=== PATIENT | female | born 1985 | race Caucasian/White ===

== ENCOUNTER 2017-06-13 07:06 | Inpatient (IN) ==
[~2017-06-13 07:06] MED LIST: Acetaminophen 325 MG TABLET PO ONE; Famotidine 20 MG/2 ML VIAL IVP PRN; Metoclopramide 10 MG/2 ML VIAL IVP PRN; Naloxone 0.4 MG/ML INJ IVP PRN
[2017-06-13] MEDS ORDERED: *HR* Nalbuphine 20 MG/ML AMPUL IVP PRN (07:08)
[2017-06-13] MEDS ORDERED: Ringers Solution, Lactated 1,000 ML ONE (07:15)
[2017-06-13] MEDS ORDERED: Ringers Solution, Lactated 1,000 ML IVC SCH (07:15)
[2017-06-13] MEDS ORDERED: *HR* Nalbuphine 20 MG/ML AMPUL ONE (07:16)
[2017-06-13 07:26] LABS: Basophils % 0.1 %; Eosinophils % 0.2 %; Hematocrit 37.5 % (35.3-44.9); Hemoglobin 12.9 g/dL (11.5-15.4); Immature Granulocytes % 1.2 % (0-4); Lymphocytes # 1.8 K/mcL (0.6-4.6); Lymphocytes % 12.4 %; Mean Corpuscular HGB Conc 34.4 g/dL (31.6-35.5); Mean Corpuscular Hemoglobin 30.1 pg (28.0-33.3); Mean Corpuscular Volume 87.6 fL (83.0-100.0); Monocytes # 0.9 K/mcL (0.0-1.3); Monocytes % 6.2 %; Neutrophils # 11.7 K/mcL (1.6-8.9); Platelet Count 240 K/mcL (140-400); Red Blood Count 4.28 M/mcL (3.82-4.97); Red Cell Distribution Width 13.4 % (11.5-14.5); Segmented Neutrophils % 79.9 %
--- NOTE | 2017-06-13 07:32 | Anesthesia Evaluation PreOp ---
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 Any Significant HX Other Medical History: GERD Anesthesia History: No Prior Anesthetic Complications, Past Anesthesia (leep) : Yes Test: Positive Alcohol Use: none Drug use: none Medications and Allergies Caplet 1 tab PO DAILY 10/30/16 [History] Ranitidine HCl 1 tab PO PRN PRN 10/30/16 [History] Ferrous Sulfate 1 tab PO DAILY 06/13/17 [History] Allergies Sulfa (Sulfonamide Antibiotics) Allergy (Verified 06/13/17 02:25) Rash - Meds/Allergy Pre-op Review Medications Reviewed: Yes Allergies Reviewed: Yes Beta Blockers on Current Med List: No Anesthesia Exam 120/80 88 16 fht 123 Height: 5'1" Weight: 86 kg NPO (# of Hours): 2 Pain Scale: 7 Pain Scale Used: Numeric (1 - 10) - HEENT Pupil (Motor): Pupils equal Mallampati: II Teeth: Normal Oral Opening: Greater than 3 - 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
[2017-06-13] MEDS ORDERED: *HR* Ropivacaine/PF 0.2% 10 ML AMPUL EP ONE (07:33)
[2017-06-13] MEDS ORDERED: *HR* FentaNYL (PF) 100 MCG/2 ML VIAL EP ONE (07:33)
[2017-06-13] MEDS ORDERED: *HR* FentaNYL (PF) 100 MCG/2 ML VIAL ONE (07:36)
[2017-06-13] MEDS ORDERED: *HR* Ropivacaine/PF 0.2% 10 ML AMPUL ONE (07:36)
[2017-06-13] MEDS ORDERED: Epidural Premix (fent/bupiv) 110 ML EP ONE ×2 (07:37→14:48)
[2017-06-13] MEDS ORDERED: Epidural Premix (fent/bupiv) 110 ML EP SCH (07:45)
--- NOTE | 2017-06-13 08:05 | Anesthesia Procedures ---
Date of Encounter: 06/13/17 Time of Encounter: 08:03 Procedures: Anesthesia - Epidural/Spinal Patient ID/Chart reviewed: Yes Patient examined: Yes OB Eval: Gestational age: 42 OB Eval: : 2 OB Eval: Hx Para: 0 OB Eval: Dilated at (cm): 3 OB Eval: Contractions: Non-stressed pattern Consent Obtained: Yes Supplemental Oxygen: None/Room Air Site Prep: Aseptic Technique Patient position: upright Local Anesthetic: Lidocaine 1% Amount of Local Anesthetic used: 3 Touhy Needle Gauge: 18 Touhy Needle Depth (cm): 7 Catheter Depth at Skin (cm): 15 Test Dose (1.5% Lido + Epi): Volume given (mls): 3 Test Dose Result: Negative Loading Dose: Fentanyl (mcg): 100 Loading Dose: Other: ropivicaine 0.2% 10 cc Loading Dose Administered: Thru Touhy Needle Infusion Med: 0.125% Bupivacaine w/ 2 mcg/ml Fentanyl Infusion Rate (mls/hr): 15 (pcea 5 cc q 30") Catheter Secured in Place: Tegaderm Interspace Used: L2-L3 Loss of Resistance (URSULA): Yes Blood: No CSF: No Paresthesia: No Procedure: aseptic, tolerated well, effective Vitals + FHT's: 114/76 87 16 fht 123
--- NOTE | 2017-06-13 08:12 | OB Labor Progress Note ---
Date of Encounter: 06/13/17 Time of Encounter: 08:11 Labor Progress Note - Subjective Subjective: Pt is comfortable with epidural. - Cervix Cervix: 6/100/0 - Heart Tones Heart Tones: Category I - [place]: irregular - Interventions Interventions: AROM for small amount thick meconium stained fluid - Plan Plan: Continue to monitor. Anticipate .
--- NOTE | 2017-06-13 08:26 | OB/GYN History & Physical ---
Date of Encounter: 06/13/17 Time of Encounter: 08:22 Assessment and Plan (1) Post term over 40 weeks Current visit: Yes Status: Acute epidural has been given anticipate vaginal delivery (2) Low lying placenta nos or without hemorrhage, third trimester Current visit: Yes Status: Acute (3) Abnormal AFP3 test Current visit: Yes Status: Acute (4) S/P LEEP (loop electrosurgical excision procedure) Current visit: Yes Status: Acute History of Present Illness Chief complaint: contractions HPI: Ms. Caban is a 31 year old female at 40.5 weeks gestation here today with increased contractions and has made cervical change. Her has been uncomplicated. She reports mild vaginal bleeding after cervical check 2 days prior at her office visit and good movement. Denies loss of vaginal fluid, dizziness, blurred vision, headache. She is having a girl and plans to breast feed. Labs: GBS negative, Rubella immune, all other labs wnl Past Med Surg Social Fam HX - Past Medical History Medical history: non-contributory Psychiatric history: anxiety - Social History Smoking Status: Former smoker Smokeless Tobacco Status: No Alcohol use: none Drug use: none - Family History Mother History Unknown: Yes Obstetrical History - Pregnancies : 2 Para: 0 Term: 0 : 0 Ab's: 1 Livin Medications and Allergies Caplet 1 tab PO DAILY 10/30/16 [History] Ranitidine HCl 1 tab PO PRN PRN 10/30/16 [History] Ferrous Sulfate 1 tab PO DAILY 06/13/17 [History] Allergies Sulfa (Sulfonamide Antibiotics) Allergy (Verified 06/13/17 02:25) Rash Review of System OB - Constitutional Constitutional ROS IM: as per HPI Exam - Constitutional Constitutional: well developed, well nourished, no acute distress, average body habitus - HEENT HEENT: Normocephaly, Mucus Membranes Moist - Neck Neck exam: normal inspection - Lungs Respiratory exam: CTAB - Cardiovascular Cardiovascular exam: RRR, +S1, +S2 - Abdomen Abdomen: Present: bowel sounds normal, gravid, non tender - Cervix Dilation: 6 Effacement: 100 Station: 0 Results Result Diagrams: 06/13/17 07:00 Abnormal lab results WBC 14.6 K/mcL (4.3-11.1) H 06/13/17 07:00 Neutrophils # 11.7 K/mcL (1.6-8.9) H 06/13/17 07:00 All other labs normal. - VTE Reasons for not Prescribing Prophylaxis: Treatment not Indicated - Low risk for VTE
[2017-06-13] MEDS ORDERED: Ondansetron 4 MG/2 ML VIAL IM ONE ×2 (09:30→14:26)
--- NOTE | 2017-06-13 15:32 | OB Labor Progress Note ---
Date of Encounter: 06/13/17 Time of Encounter: 15:30 Labor Progress Note - Subjective Subjective: patient doing very well, comfortable with epidural - Vital Signs Vital Signs: VSS - Cervix Cervix: fully dilated - Heart Tones Heart Tones: 120/mod elma+ accels, no decels - Plan Plan: allow to labor down, anticipate
[2017-06-13] MEDS ORDERED: Oxytocin 20 units/ LR 1000 mL 20 UNIT/1,000 ML BAG IVC ONE ×3 (16:53→20:38)
--- NOTE | 2017-06-13 18:44 | OB/GYN Procedure Note ---
Delivery - Delivery Date: 06/13/17 Provider: Augusto Alston Intrapartum events: meconium Delivery induction: none Delivery augmentation: rupture of membranes Delivery monitor: external FHT Anesthesia: epidural Estimated Blood Loss: 650 - Repair Episiotomy: none Laceration Description: Perineal - 3rd Degree - Complications Delivery complications: hemorrhage, retained placenta - Disposition Mom disposition: stable in LDR disposition: stable in LDR - Comments Comments: Arsh is a 31 y/o now delivered a viable female infant with meconium via VAVD @ 1749hrs. Patient pushed to +3 station and heart rate dropped to the 90's. A VAVD was used to facilitate delivery. Infant was delivered [place], 3VC, cord clamped, cut and handed over to nurses, weight 3630g, APGARs 8/8, placenta delivered @ 1753hrs. EBL 650, Methergine .2 and Hemabate .25 given for PPH, manual extraction of retained placenta was performed. 3rd degree perineal laceration repaired in usual manner. Mother and infant stable.
[2017-06-13 18:47] LABS: Basophils % 0.1 %; Hematocrit 40.3 % (35.3-44.9); Hemoglobin 13.3 g/dL (11.5-15.4); Immature Granulocytes % 0.7 % (0-4); Lymphocytes # 1.4 K/mcL (0.6-4.6); Lymphocytes % 9.3 %; Mean Corpuscular Hemoglobin 29.5 pg (28.0-33.3); Mean Corpuscular Volume 89.4 fL (83.0-100.0); Monocytes # 1.3 K/mcL (0.0-1.3); Monocytes % 8.8 %; Neutrophils # 12.3 K/mcL (1.6-8.9); Platelet Count 226 K/mcL (140-400); Red Blood Count 4.51 M/mcL (3.82-4.97); Red Cell Distribution Width 13.2 % (11.5-14.5); Segmented Neutrophils % 81.1 %
[2017-06-13] MEDS ORDERED: Measles/Mumps/Rubella Vacc 0.5 ML VIAL SQ PRN (20:38)
[2017-06-13] MEDS ORDERED: Oxytocin 20 units/ LR 1000 mL 20 UNIT/1,000 ML BAG IVC SCH (20:45)
[2017-06-14] MEDS ORDERED: Acetaminophen 325 MG TABLET PO PRN (00:05)
[2017-06-14] MEDS: Ibuprofen 600 MG TABLET PO PRN ×3 (03:43→15:55)
[2017-06-14 05:54] LABS: Basophils % 0.2 %; Eosinophils % 0.1 %; Hematocrit 25.5 % (35.3-44.9); Immature Granulocytes % 0.9 % (0-4); Lymphocytes # 1.4 K/mcL (0.6-4.6); Lymphocytes % 8.2 %; Mean Corpuscular HGB Conc 33.7 g/dL (31.6-35.5); Mean Corpuscular Volume 88.9 fL (83.0-100.0); Mean Platelet Volume 10.7 fL (9.4-12.4); Monocytes # 1.5 K/mcL (0.0-1.3); Monocytes % 8.5 %; Neutrophils # 14.2 K/mcL (1.6-8.9); Platelet Count 189 K/mcL (140-400); Red Blood Count 2.87 M/mcL (3.82-4.97); Red Cell Distribution Width 13.3 % (11.5-14.5); Segmented Neutrophils % 82.1 %
[2017-06-14 05:58] LABS: Hemoglobin 8.6 g/dL (11.5-15.4)
--- NOTE | 2017-06-14 08:17 | OB/GYN Progress Note ---
Date of Encounter: 06/14/17 Time of Encounter: 08:15 - Assessment and Plan (1) Post term over 40 weeks Current Visit: Yes Status: Resolved (2) Anemia Current Visit: Yes Status: Acute Qualifiers: Anemia type: iron deficiency Iron deficiency anemia type: other iron deficiency Qualified Code(s): D50.8 - Other iron deficiency anemias Subjective - Subjective Patient reports: appetite normal, voiding normally, pain well controlled, ambulating normally [place]: doing well Objective - Latest Vital Signs Latest vital signs: Vital Signs Temp Pulse Resp BP Pulse Ox 06/14/17 03:15 98.3 F 89 16 114/69 98 06/13/17 22:35 98 F 78 16 119/82 97 06/13/17 21:35 98.5 F 79 14 111/78 98 06/13/17 20:35 97.8 F 79 14 115/78 97 Intake and Output 06/13/17 06/14/17 06/14/17 23:59 07:59 15:59 Intake Total 800 / 800 Output Total 300 / 300 900 / 900 Balance -300 / -300 -100 / -100 Intake: IV Fluids 600 / 600 Pitocin 20 unit In 1,000 600 / 600 ml @ 125 mls/hr IVC .Q8H DIMA Rx#:[id number] Oral 200 / 200 Output: Urine 300 / 300 900 / 900 Other: Weight 77.7 kg 76.793 kg Patient Weight 06/14/17 23:59 Weight 76.793 kg - Exam Lungs: bilateral: normal Chest: Normal S1, Normal S2 Abdomen: Present: soft, gravid Uterus Position: 1 Finger Above Umbilicus - Labs Labs: Laboratory Results - last 24 hr 06/13/17 06/14/17 18:35 05:47 WBC 15.1 H 17.3 H RBC 4.51 2.87 L Hgb 13.3 8.6 L D Hct 40.3 25.5 L MCV 89.4 88.9 MCH 29.5 30.0 MCHC 33.0 33.7 RDW 13.2 13.3 Plt Count 226 189 MPV 11.0 10.7 Immature Gran % 0.7 0.9 Seg Neutrophils % 81.1 82.1 Lymphocytes % 9.3 8.2 Monocytes % 8.8 8.5 Eosinophils % 0.0 0.1 Basophils % 0.1 0.2 Neutrophils # 12.3 H 14.2 H Lymphocytes # 1.4 1.4 Monocytes # 1.3 1.5 H Eosinophils # 0.0 0.0 Basophils # 0.0 0.0
[2017-06-14] MEDS ORDERED: Benzocaine/Menthol 56 GM AEROSOL SPRAY TP PRN (08:38)
[2017-06-14] MEDS: Prenatal Vit/FA 1 EACH TABLET PO SCH (08:45)
[2017-06-15] MEDS: Ibuprofen 600 MG TABLET PO PRN ×2 (01:37→07:58)
[2017-06-15 05:39] LABS: Basophils % 0.3 %; Eosinophils # 0.1 K/mcL (0.0-0.6); Eosinophils % 0.7 %; Hematocrit 25.4 % (35.3-44.9); Hemoglobin 8.3 g/dL (11.5-15.4); Immature Granulocytes % 1.5 % (0-4); Lymphocytes # 2.2 K/mcL (0.6-4.6); Lymphocytes % 19.9 %; Mean Corpuscular HGB Conc 32.7 g/dL (31.6-35.5); Mean Corpuscular Hemoglobin 29.6 pg (28.0-33.3); Mean Corpuscular Volume 90.7 fL (83.0-100.0); Monocytes # 0.8 K/mcL (0.0-1.3); Monocytes % 7.4 %; Neutrophils # 7.8 K/mcL (1.6-8.9); Platelet Count 219 K/mcL (140-400); Red Cell Distribution Width 13.5 % (11.5-14.5); Segmented Neutrophils % 70.2 %
[2017-06-15] MEDS: Prenatal Vit/FA 1 EACH TABLET PO SCH (07:58)
[2017-06-15 08:05] VITALS: BP 109/61
--- NOTE | 2017-06-15 08:09 | Discharge Summary ---
Date of Encounter: 06/15/17 Time of Encounter: 08:07 - Discharge Diagnosis (1) Vaginal delivery Priority: Primary Status: Acute Comments: Continue routine care discharge home today follow up with Dr. Burns in 4-6 weeks (2) Third degree laceration of perineum during delivery, Priority: Secondary Status: Acute Comments: Ice packs and sitz bath prn Motrin for pain colace daily (3) anemia Priority: Secondary Status: Acute Comments: Continue ferrous sulfate BID (4) Breast feeding status of mother Priority: Secondary Status: Acute Comments: support prn - Discharge Medications Prescriptions: Ibuprofen [Motrin] 600 mg PO Q6HR PRN #60 tab PRN Reason: Cramping Breast Pump [BREAST PUMP] 1 each .ROUTE AD #1 each Docusate [Colace] 100 mg PO BID #60 Ferrous Sulfate 325 mg PO BID #60 tab Home Medications: Caplet 1 tab PO DAILY 10/30/16 [History] Ranitidine HCl 1 tab PO PRN PRN 10/30/16 [History] Ferrous Sulfate 1 tab PO DAILY 06/13/17 [History] Breast Pump [BREAST PUMP] 1 each .ROUTE AD #1 each 06/15/17 [Rx] Docusate [Colace] 100 mg PO BID #60 06/15/17 [Rx] Ferrous Sulfate 325 mg PO BID #60 tab 06/15/17 [Rx] Ibuprofen [Motrin] 600 mg PO Q6HR PRN #60 tab 06/15/17 [Rx] Vit/FA 1 each PO DAILY tab 06/15/17 [Rx] Allergies/Adverse Reactions: Allergies Sulfa (Sulfonamide Antibiotics) Allergy (Verified 06/13/17 02:25) Rash Data Procedures and tests throughout hospitalization: Laboratory Tests 06/13/17 06/13/17 06/14/17 07:00 18:35 05:47 WBC 14.6 H 15.1 H 17.3 H RBC 4.28 4.51 2.87 L Hgb 12.9 13.3 8.6 L D Hct 37.5 40.3 25.5 L MCV 87.6 89.4 88.9 MCH 30.1 29.5 30.0 MCHC 34.4 33.0 33.7 RDW 13.4 13.2 13.3 Plt Count 240 226 189 MPV 11.0 11.0 10.7 Immature Gran % 1.2 0.7 0.9 Seg Neutrophils % 79.9 81.1 82.1 Lymphocytes % 12.4 9.3 8.2 Monocytes % 6.2 8.8 8.5 Eosinophils % 0.2 0.0 0.1 Basophils % 0.1 0.1 0.2 Neutrophils # 11.7 H 12.3 H 14.2 H Lymphocytes # 1.8 1.4 1.4 Monocytes # 0.9 1.3 1.5 H Eosinophils # 0.0 0.0 0.0 Basophils # 0.0 0.0 0.0 06/15/17 05:12 WBC 11.0 RBC 2.80 L Hgb 8.3 L Hct 25.4 L MCV 90.7 MCH 29.6 MCHC 32.7 RDW 13.5 Plt Count 219 MPV 11.0 Immature Gran % 1.5 Seg Neutrophils % 70.2 Lymphocytes % 19.9 Monocytes % 7.4 Eosinophils % 0.7 Basophils % 0.3 Neutrophils # 7.8 Lymphocytes # 2.2 Monocytes # 0.8 Eosinophils # 0.1 Basophils # 0.0 Labs on day of discharge: Labs from last 24 hours 06/15/17 05:12 WBC 11.0 RBC 2.80 L Hgb 8.3 L Hct 25.4 L MCV 90.7 MCH 29.6 MCHC 32.7 RDW 13.5 Plt Count 219 MPV 11.0 Immature Gran % 1.5 Seg Neutrophils % 70.2 Lymphocytes % 19.9 Monocytes % 7.4 Eosinophils % 0.7 Basophils % 0.3 Neutrophils # 7.8 Lymphocytes # 2.2 Monocytes # 0.8 Eosinophils # 0.1 Basophils # 0.0 Date of admission: 06/13/17 07:06 Discharging clinician: Madeleine López Anticipated date of discharge: 06/15/17 - Patient Status Disposition: Home, Self-Care Condition: Good Functional capacity at discharge: independent ambulation - Discharge Instructions Follow Up With: Mayuri Burns MD [Partnered Physician] - - Diet and Activity Activity: increase activity as tolerated Diet: regular diet Hospital Course Reason for admission: active labor Delivery: Episiotomy: none Laceration: 3rd degree Other procedures: none complications: retained placenta Discharge diagnosis: IUP at term delivered [place] baby: female Time Attestation: Total time spent providing and/or coordinating discharge services: Time Spent: Less than 30 minutes Exam - Constitutional Vitals: Temp Pulse Resp BP Pulse Ox 97.8 F 80 16 109/61 98 06/15/17 07:30 06/15/17 07:30 06/15/17 07:30 06/15/17 07:30 06/15/17 07:30 General appearance IM: A&O X 3, pleasant, answers questions appropriately - Respiratory Respiratory exam: Present: CTAB - Cardiovascular Cardiovascular exam IM: Present: RRR, +S1, +S2 - GI/Abdominal GI/Abdominal exam IM: normal bowel sounds - Uterine Tone: Firm Uterus Position: 1 Finger Below Umbilicus, Midline - Extremities Exam Extremities exam IM: Present: full ROM, normal capillary refill, normal inspection - Neurological Exam Neurological exam: alert, oriented X3, reflexes normal
[2017-06-15] MEDS ORDERED: Methylergonovine 0.2 MG/ML AMPUL IM ONE (11:29)
== END 2017-06-15 11:30 | disposition home or self-care (01) | DRG 541 ==
LOC: 1NENULAB → 1NENUOBS 20:21
PROVIDERS: ADMIT Registered Nurse; ATTEND Registered Nurse

== ENCOUNTER 2018-08-29 09:50 | Observation (INO) ==
--- NOTE | 2018-08-29 10:12 | Emergency Department Note ---
Disposition Clinical Impression: Calculus of kidney Disposition: Still a Patient General Adult HPI - General Chief complaint: ED Abdominal Pain Stated complaint: N/V Back /ABD Pain Time Seen by Provider: 08/29/18 09:56 Source: patient Limitations: no limitations - History of Present Illness HPI Narrative: Attestation note: Patient was seen with the emergency medicine resident/nurse practitioner/physician accounts payable assistant/transitional resident/medical student: Dr. ISIDRO KISER I have personally performed a face to face evaluation on this patient. I have reviewed and agree with history and physical examination patient management and disposition. Briefly the salient points of the case are as follows: 32-year-old female otherwise healthy presents ambulatory with her for several days of nausea and vomiting left-sided back and flank pain. Patient states she was seen at the local urgent care day or 2 ago said "urine test was negative". That is for infection or . No prior history of stones or intra-abdominal surgery. Patient complains of some tactile chills but no fevers. Patient has some mild left CVAT abdomen is surgically benign denies vaginal discharge. Patient is afebrile with stable vital signs of the appears to be in moderate discomfort. Patient will get analgesics screening labs urinalysis. Disposition pending. Patient will also get abdominal pelvic CT without contrast to search for stone or other intra-abdominal surgical pathology. Pain Scale: 8 - Related Data Home Medications Medication Instructions Recorded Confirmed Cryselle-28 Tablet 10/08/17 Tylenol 08/08/18 Zoloft 08/08/18 Previous Rx's Medication Instructions Recorded Cephalexin [Keflex] 500 mg PO QID #40 capsule 08/08/18 Triamcinolone Acet 0.1% OINT 1 appl TP BID #1 tube 08/25/18 [Kenalog] predniSONE [PredniSONE] See Taper PO DAILY #18 tablet 08/25/18 Ibuprofen [Motrin] 800 mg PO Q8HR #30 tablet 08/27/18 Ondansetron HCl [Zofran] 4 mg PO TID #15 tablet 08/27/18 Allergies Allergy/AdvReac Type Severity Reaction Status Date / Time Amoxicillin AdvReac Hives Verified 08/25/18 18:21 clindamycin AdvReac Abdominal Verified 08/08/18 18:36 Pain doxycycline AdvReac Abdominal Verified 08/08/18 18:36 Pain Penicillins AdvReac Hives Verified 08/25/18 18:21 Sulfa (Sulfonamide AdvReac Rash Verified 08/25/18 18:21 Antibiotics) Past Medical History - Past Medical History Medical history: Reports: non-contributory Psychiatric history: Reports: anxiety UNIT 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 - Social History Smoking Status: Never smoker Smokeless Tobacco Status: No Alcohol use: Reports: none Drug use: Reports: none Physical Exam - General Limitations: no limitations General appearance: alert, in no apparent distress Course Vital Signs Temperature 97.8 F 08/29/18 09:52 Pulse Rate 74 08/29/18 09:52 Respiratory Rate 18 08/29/18 09:52 Blood Pressure 131/86 08/29/18 09:52 O2 Sat by Pulse Oximetry 99 08/29/18 09:52 Temperature 97.8 F 08/29/18 10:06 Pulse Rate 74 08/29/18 10:06 Respiratory Rate 18 08/29/18 10:06 Blood Pressure 131/86 08/29/18 10:06 O2 Sat by Pulse Oximetry 99 08/29/18 10:06 Oxygen Delivery Oxygen Delivery Room Air
[2018-08-29] MEDS ORDERED: Ondansetron 4 MG/2 ML VIAL IVP ONE (10:14)
[2018-08-29] MEDS ORDERED: 0.9 % Sodium Chloride 1,000 ML IVC ONE ×2 (10:14→12:49)
[2018-08-29] MEDS ORDERED: Ketorolac 15 MG/ML VIAL IVP ONE (10:35)
--- NOTE | 2018-08-29 10:35 | Emergency Department Note ---
Disposition Clinical Impression: Calculus of kidney Hydronephrosis Qualifiers: Hydronephrosis type: unspecified Qualified Code(s): N13.30 - Unspecified hydronephrosis Disposition: Admitted As Inpatient Condition: Fair Referrals: Khushi Velasco MD [Primary Care Provider] - Forms: ED Satisfaction Letter, Work/School Release General Adult HPI - General Chief complaint: ED Abdominal Pain Stated complaint: N/V Back /ABD Pain Time Seen by Provider: 08/29/18 09:56 Source: patient Mode of arrival: ambulatory Limitations: no limitations Nursing Notes Reviewed: Yes Vital Signs Reviewed: Yes - History of Present Illness HPI Narrative: 32-year-old female with no significant past medical history presenting to the emergency department with chief complaint of left flank pain. Patient states for the past 3 days she has had worsening left flank pain. Went to an urgent care where she was diagnosed with gastroenteritis and given Zofran. Urinalysis was completed at that time that was within normal limits but no other intervention or testing was completed. Patient states she had one episode of nonbloody nonbilious vomiting this morning. Has not been able to have a bowel movement since . The bowel movement on with small, pellet- like. Last good bowel movement was the beginning of the week. Patient denies any fevers, chest pain or shortness of breath. Pain Scale: 8 - Related Data Home Medications Medication Instructions Recorded Confirmed Cryselle-28 Tablet 10/08/17 Tylenol 08/08/18 Zoloft 08/08/18 Previous Rx's Medication Instructions Recorded Cephalexin [Keflex] 500 mg PO QID #40 capsule 08/08/18 Triamcinolone Acet 0.1% OINT 1 appl TP BID #1 tube 08/25/18 [Kenalog] predniSONE [PredniSONE] See Taper PO DAILY #18 tablet 08/25/18 Ibuprofen [Motrin] 800 mg PO Q8HR #30 tablet 08/27/18 Ondansetron HCl [Zofran] 4 mg PO TID #15 tablet 08/27/18 Allergies Allergy/AdvReac Type Severity Reaction Status Date / Time Amoxicillin AdvReac Hives Verified 08/25/18 18:21 clindamycin AdvReac Abdominal Verified 08/08/18 18:36 Pain doxycycline AdvReac Abdominal Verified 08/08/18 18:36 Pain Penicillins AdvReac Hives Verified 08/25/18 18:21 Sulfa (Sulfonamide AdvReac Rash Verified 08/25/18 18:21 Antibiotics) All systems ED: reviewed and negative except as stated. Constitutional: Denies: fever, chills Eyes: Reports: as per HPI ENT ED: Reports: as per HPI Cardiovascular: Denies: chest pain, palpitations, dyspnea on exertion Respiratory: Denies: cough, dyspnea, wheezes Gastrointestinal: Reports: abdominal pain, nausea, vomiting, constipation Genitourinary: Denies: urgency, dysuria Musculoskeletal: Reports: as per HPI Integumentary: Reports: as per HPI Neurological: Denies: weakness, numbness, paresthesias Psychiatric: Reports: as per HPI Endocrine: Reports: as per HPI Hematological/Lymphatic: Reports: as per HPI Allergic/Immunologic: Reports: as per HPI Past Medical History - Past Medical History Attestation: Yes The following information was validated with the patient. Medical history: Reports: non-contributory Psychiatric history: Reports: anxiety [employer]OR [employer] history: Reports: no [employer] history - Social History Smoking Status: Never smoker Smokeless Tobacco Status: No Alcohol use: Reports: none Drug use: Reports: none Physical Exam - General Limitations: no limitations General appearance: alert, in no apparent distress - Head Head exam: atraumatic, normocephalic, normal inspection - Eye Eye exam: Present: normal appearance. Absent: scleral icterus, conjunctival injection - ENT ENT exam: mucous membranes dry - Neck Neck exam: Present: normal inspection, full ROM. Absent: tenderness, meningismus - Chest Chest inspection: Present: normal inspection, symmetric chest wall rise. Absent: tenderness, rash - Respiratory Respiratory exam: Present: normal lung sounds bilaterally. Absent: respiratory distress, wheezes - Cardiovascular Cardiovascular exam: Present: regular rate, normal rhythm, normal heart sounds - Abdominal Exam Abdominal exam: Present: soft, tenderness (left flank). Absent: distention, guarding, rebound, rigidity - Extremities Exam Extremities exam: Present: normal inspection, full ROM - Neurological Exam Neurological exam: Present: alert, oriented X3 - Psychiatric Psychiatric exam: Present: normal affect, normal mood - Skin Skin exam: Present: warm, intact Course Course Narrative: 32-year-old female presenting with left flank pain. She is alert and oriented 3 in the room and hemodynamically stable. Mucous membranes dry. Concern for pyelonephritis versus kidney stone. At this time we will perform a urine analysis, CT of abdomen and pelvis along with CBC and BMP. Disposition pending results. Patient agrees with this plan. - Reevaluation(s) Reevaluation #1: Patient's laboratory analysis shows acute kidney injury with creatinine at 1.33. Urinalysis does not show infection but does show large blood. CT of the abdomen and pelvis shows a 1.2 cm stone on the left side. Patient still unable to take anything by mouth. Patient has remained alert and oriented 3 with stable vital signs. I spoke with the urologist information systems security analyst Dr. Miller who agrees to accept the patient at this time. We will provide the patient with a second liter of fluid and fentanyl for pain relief. Patient agrees with this plan. Vital Signs Temperature 97.8 F 08/29/18 09:52 Pulse Rate 74 08/29/18 09:52 Respiratory Rate 18 08/29/18 09:52 Blood Pressure 131/86 08/29/18 09:52 O2 Sat by Pulse Oximetry 99 08/29/18 09:52 Temperature 97.8 F 08/29/18 10:06 Pulse Rate 68 08/29/18 10:47 Respiratory Rate 18 08/29/18 10:47 Blood Pressure 115/87 08/29/18 10:47 O2 Sat by Pulse Oximetry 98 08/29/18 10:47 Oxygen Delivery Oxygen Delivery Room Air Medical Decision Making - Lab Data Result diagrams: 08/29/18 10:14 08/29/18 10:14 Lab Results 08/29/18 08/29/18 08/29/18 Range/Units 10:14 10:14 10:47 WBC 11.1 (4.3-11.1) K/mcL RBC 4.22 (3.82-4.97) M/mcL Hgb 12.5 (11.5-15.4) g/dL Hct 36.4 (35.3-44.9) % MCV 86.3 (83.0-100.0) fL MCH 29.6 (28.0-33.3) pg MCHC 34.3 (31.6-35.5) g/dL RDW 12.9 (11.5-14.5) % Plt Count 251 (140-400) K/mcL MPV 10.6 (9.4-12.4) fL Immature Gran % 0.5 (0-4) % Seg Neutrophils % 71.2 % Lymphocytes % 17.0 % Monocytes % 10.9 % Eosinophils % 0.2 % Basophils % 0.2 % Neutrophils # 7.9 (1.6-8.9) K/mcL Lymphocytes # 1.9 (0.6-4.6) K/mcL Monocytes # 1.2 (0.0-1.3) K/mcL Eosinophils # 0.0 (0.0-0.6) K/mcL Basophils # 0.0 (0.0-0.2) K/mcL Sodium 137 (136-145) mEq/L Potassium 3.4 L (3.5-5.1) mEq/L Chloride 102 (98-107) mEq/L Carbon Dioxide 27 (23-29) mEq/L BUN 20 (6-20) mg/dL Creatinine 1.33 H (0.60-1.20) mg/dL Est GFR ( Amer) 57 L (> 60) Est GFR (Non-Af Amer) 47 L (> 60) BUN/Creatinine Ratio 15 (6-26) Glucose 101 (70-105) mg/dL Calculated Osmolality 287 (280-300) Calcium 8.5 L (8.6-10.3) mg/dL Urine Color Yellow (Yellow) Urine Clarity Cloudy A (Clear) Urine pH 6.5 (5.0-8.0) pH Units Ur Specific [place] 1.024 (1.010-1.025) Urine Protein Trace (Neg-Trace) mg/dL Urine Glucose (UA) Normal (Normal) mg/dL Urine Ketones Negative (Negative) mg/dL Urine Blood Large H (Negative) Urine Nitrite Negative (Negative) Urine Bilirubin Negative (Negative) Urine Urobilinogen Normal (Normal) mg/dL Ur Leukocyte Esterase Moderate H (Negative) Urine Microscopic RBC 50-100 H (0-3) per hpf Urine Microscopic WBC 30-50 H (0-3) per hpf Ur Squamous Epith Cells Many H (None-Few) per lpf Urine Bacteria Moderate H (None-Few) per hpf Hyaline Casts None Seen (None-Few) per lpf Ur Culture Indicated? NO. A (NO) Urine Test (Negative) 08/29/18 Range/Units 10:47 WBC (4.3-11.1) K/mcL RBC (3.82-4.97) M/mcL Hgb (11.5-15.4) g/dL Hct (35.3-44.9) % MCV (83.0-100.0) fL MCH (28.0-33.3) pg MCHC (31.6-35.5) g/dL RDW (11.5-14.5) % Plt Count (140-400) K/mcL MPV (9.4-12.4) fL Immature Gran % (0-4) % Seg Neutrophils % % Lymphocytes % % Monocytes % % Eosinophils % % Basophils % % Neutrophils # (1.6-8.9) K/mcL Lymphocytes # (0.6-4.6) K/mcL Monocytes # (0.0-1.3) K/mcL Eosinophils # (0.0-0.6) K/mcL Basophils # (0.0-0.2) K/mcL Sodium (136-145) mEq/L Potassium (3.5-5.1) mEq/L Chloride (98-107) mEq/L Carbon Dioxide (23-29) mEq/L BUN (6-20) mg/dL Creatinine (0.60-1.20) mg/dL Est GFR ( Amer) (> 60) Est GFR (Non-Af Amer) (> 60) BUN/Creatinine Ratio (6-26) Glucose (70-105) mg/dL Calculated Osmolality (280-300) Calcium (8.6-10.3) mg/dL Urine Color (Yellow) Urine Clarity (Clear) Urine pH (5.0-8.0) pH Units Ur Specific [place] (1.010-1.025) Urine Protein (Neg-Trace) mg/dL Urine Glucose (UA) (Normal) mg/dL Urine Ketones (Negative) mg/dL Urine Blood (Negative) Urine Nitrite (Negative) Urine Bilirubin (Negative) Urine Urobilinogen (Normal) mg/dL Ur Leukocyte Esterase (Negative) Urine Microscopic RBC (0-3) per hpf Urine Microscopic WBC (0-3) per hpf Ur Squamous Epith Cells (None-Few) per lpf Urine Bacteria (None-Few) per hpf Hyaline Casts (None-Few) per lpf Ur Culture Indicated? (NO) Urine Test Negative (Negative)
[2018-08-29 10:47] LABS: Basophils % 0.2 %; Eosinophils % 0.2 %; Hematocrit 36.4 % (35.3-44.9); Hemoglobin 12.5 g/dL (11.5-15.4); Immature Granulocytes % 0.5 % (0-4); Lymphocytes # 1.9 K/mcL (0.6-4.6); Mean Corpuscular HGB Conc 34.3 g/dL (31.6-35.5); Mean Corpuscular Hemoglobin 29.6 pg (28.0-33.3); Mean Corpuscular Volume 86.3 fL (83.0-100.0); Mean Platelet Volume 10.6 fL (9.4-12.4); Monocytes # 1.2 K/mcL (0.0-1.3); Monocytes % 10.9 %; Neutrophils # 7.9 K/mcL (1.6-8.9); Platelet Count 251 K/mcL (140-400); Red Blood Count 4.22 M/mcL (3.82-4.97); Red Cell Distribution Width 12.9 % (11.5-14.5); Segmented Neutrophils % 71.2 %
[2018-08-29 11:00] LABS: Calcium 8.5 mg/dL (8.6-10.3); Potassium 3.4 mEq/L (3.5-5.1)
[2018-08-29 11:15] LABS: Bilirubin,Urine Negative (Negative); Blood,Urine Large (Negative); Clarity,Urine Cloudy (Clear); Color,Urine Yellow (Yellow); Glucose,Urine (UA) Normal (Normal); Ketones,Urine Negative (Negative); Leukocyte Esterase,Urine Moderate (Negative); Nitrite,Urine Negative (Negative); PH,Urine 6.5 pH Units (5.0-8.0); Protein,Urine Trace mg/dL (Neg-Trace); Specific Gravity,Urine 1.024 (1.010-1.025); Urobilinogen,Urine Normal (Normal)
[2018-08-29 11:17] LABS: Bacteria,Urine Moderate per hpf (None-Few); Hyaline Casts,Urine None Seen per lpf (None-Few); RBC,Urine 50-100 per hpf (0-3); Squamous Epithelial Cell,Urine Many per lpf (None-Few); WBC,Urine 30-50 per hpf (0-3)
[2018-08-29] MEDS ORDERED: 0.9 % Sodium Chloride 1,000 ML ONE (12:43)
[2018-08-29] MEDS ORDERED: *HR* FentaNYL (PF) 100 MCG/2 ML VIAL IVP ONE (12:49)
--- NOTE | 2018-08-29 13:37 | Urology History & Physical ---
Date of Encounter: 08/29/18 Time of Encounter: 13:35 Assessment and Plan (1) Calculus of left kidney Current Visit: Yes Status: Acute We will plan on taken the patient to the operative room today for cystoscopy and left ureteral stent placement. Patient was placed observation status. (2) Nausea and vomiting Current Visit: Yes Status: Acute Patiently brought in for IV nausea medication. Qualifiers: Vomiting Intractability: non-intractable Qualified Code(s): R11.2 - Nausea with vomiting, unspecified History of Present Illness Chief complaint: left flank pain HPI: Ms. Caban is a 32 year old female who presented emergency department today secondary to severe left-sided flank pain. Patient states the pain has been ongoing since Thursday. Patient states her pain is currently a 10 out of 10 in nature but improved with pain medicine. She has been having persistent nausea and vomiting. No current fevers. Patient had a CT scan performed which reveal ed a 12 mm left UPJ stone. Patient did have moderate hydronephrosis proximal to this. Past Med Surg Social Fam HX - Past Medical History Medical history: non-contributory Additional medical history: anxiety, eczema Psychiatric history: anxiety - Past Surgical History Additional surgical history: Leep - Social History Smoking Status: Never smoker Smokeless Tobacco Status: No Alcohol use: none Drug use: none Medications and Allergies Triamcinolone Acet 0.1% OINT [Kenalog] 1 appl TP BID #1 tube 08/25/18 [Rx] predniSONE [PredniSONE] See Taper PO DAILY #18 tablet 08/25/18 [Rx] Ondansetron HCl [Zofran] 4 mg PO TID #15 tablet 08/27/18 [Rx] Ibuprofen [Motrin] 800 mg PO Q8HR PRN 08/29/18 [History] Norgestrel-Ethinyl Estradiol [Cryselle-28 Tablet] 1 tab PO DAILY 08/29/18 [History] Sertraline [Zoloft] 25 mg PO DAILY 08/29/18 [History] Allergy/AdvReac Type Severity Reaction Status Date / Time Amoxicillin Allergy Hives Verified 08/29/18 13:24 Penicillins Allergy Hives Verified 08/29/18 13:24 clindamycin AdvReac Heartburn Verified 08/29/18 13:24 doxycycline AdvReac Abdominal Verified 08/29/18 13:24 Pain Sulfa (Sulfonamide AdvReac Rash Verified 08/29/18 13:24 Antibiotics) Review of Systems - Constitutional no chills, no fever(s) - EENT Nose, mouth and throat: no dizziness - Cardiovascular no chest pain - Respiratory no cough Exam Initial Vital Signs Temp Pulse Resp BP Pulse Ox 97.8 F 74 18 131/86 99 08/29/18 09:52 08/29/18 09:52 08/29/18 09:52 08/29/18 09:52 08/29/18 09:52 - General physical appearance Present: well developed, well nourished - Eyes Present: PERRL - Respiratory Present: normal respiratory effort - Cardiovascular Cardiovascular exam IM: RRR Urology Results - Labs 08/29/18 10:14 08/29/18 10:14 Abnormal lab results Potassium 3.4 mEq/L (3.5-5.1) L 08/29/18 10:14 Creatinine 1.33 mg/dL (0.60-1.20) H 08/29/18 10:14 Est GFR ( Amer) 57 (> 60) L 08/29/18 10:14 Est GFR (Non-Af Amer) 47 (> 60) L 08/29/18 10:14 Calcium 8.5 mg/dL (8.6-10.3) L 08/29/18 10:14 Urine Clarity Cloudy (Clear) A 08/29/18 10:47 Urine Blood Large (Negative) H 08/29/18 10:47 Ur Leukocyte Esterase Moderate (Negative) H 08/29/18 10:47 Urine Microscopic RBC 50-100 per hpf (0-3) H 08/29/18 10:47 Urine Microscopic WBC 30-50 per hpf (0-3) H 08/29/18 10:47 Ur Squamous Epith Cells Many per lpf (None-Few) H 08/29/18 10:47 Urine Bacteria Moderate per hpf (None-Few) H 08/29/18 10:47 Ur Culture Indicated? NO. (NO) A 08/29/18 10:47 Diabetes panel 08/29/18 Range/Units 10:14 Sodium 137 (136-145) mEq/L Potassium 3.4 L (3.5-5.1) mEq/L Chloride 102 (98-107) mEq/L Carbon Dioxide 27 (23-29) mEq/L BUN 20 (6-20) mg/dL Creatinine 1.33 H (0.60-1.20) mg/dL Glucose 101 (70-105) mg/dL Calcium 8.5 L (8.6-10.3) mg/dL Calcium panel 08/29/18 Range/Units 10:14 Calcium 8.5 L (8.6-10.3) mg/dL Pituitary panel 08/29/18 Range/Units 10:14 Sodium 137 (136-145) mEq/L Potassium 3.4 L (3.5-5.1) mEq/L Chloride 102 (98-107) mEq/L Carbon Dioxide 27 (23-29) mEq/L BUN 20 (6-20) mg/dL Creatinine 1.33 H (0.60-1.20) mg/dL Glucose 101 (70-105) mg/dL Calcium 8.5 L (8.6-10.3) mg/dL Adrenal panel 08/29/18 Range/Units 10:14 Sodium 137 (136-145) mEq/L Potassium 3.4 L (3.5-5.1) mEq/L Chloride 102 (98-107) mEq/L Carbon Dioxide 27 (23-29) mEq/L BUN 20 (6-20) mg/dL Creatinine 1.33 H (0.60-1.20) mg/dL Glucose 101 (70-105) mg/dL Calcium 8.5 L (8.6-10.3) mg/dL All other labs normal. - Imaging CT scan - abdomen: image reviewed CT scan - pelvis: image reviewed
--- NOTE | 2018-08-29 13:38 | Anesthesia Evaluation PreOp ---
Date of Encounter: 08/29/18 Time of Encounter: 13:36 - Past History Planned Operation: L-ureteroscopy Cardiac History: Denies any Significant Hx Pulmonary History: Denies Any Significant HX MEAT SCRUBBER History: Other (Anxiety/Depression) Other Medical History: Other (Psoriasis) Anesthesia History: No Prior Anesthetic Complications, Past Anesthesia (D&C, LEEP,), MH (NO FamHx of ) Alcohol Use: none Drug use: none Medications and Allergies Triamcinolone Acet 0.1% OINT [Kenalog] 1 appl TP BID #1 tube 08/25/18 [Rx] predniSONE [PredniSONE] See Taper PO DAILY #18 tablet 08/25/18 [Rx] Ondansetron HCl [Zofran] 4 mg PO TID #15 tablet 08/27/18 [Rx] HYDROcodone/Acet 5/325 mg [[place] 5-325 mg] 1 tab PO Q6H PRN 3 Days #10 tab 08/29/18 [Rx] Ibuprofen [Motrin] 800 mg PO Q8HR PRN 08/29/18 [History] Norgestrel-Ethinyl Estradiol [Cryselle-28 Tablet] 1 tab PO DAILY 08/29/18 [History] Oxybutynin [Ditropan] 5 mg PO TID PRN #30 tablet 08/29/18 [Rx] Promethazine HCl 12.5 mg PO Q6H PRN 3 Days #10 tablet 08/29/18 [Rx] Sertraline [Zoloft] 25 mg PO DAILY 08/29/18 [History] Allergy/AdvReac Type Severity Reaction Status Date / Time Amoxicillin Allergy Hives Verified 08/29/18 13:24 Penicillins Allergy Hives Verified 08/29/18 13:24 clindamycin AdvReac Heartburn Verified 08/29/18 13:24 doxycycline AdvReac Abdominal Verified 08/29/18 13:24 Pain Sulfa (Sulfonamide AdvReac Rash Verified 08/29/18 13:24 Antibiotics) - Meds/Allergy Pre-op Review Medications Reviewed: Yes Allergies Reviewed: Yes Beta Blockers on Current Med List: No Anesthesia Results - Labs 08/29/18 10:14 08/29/18 10:14 Laboratory Results Laboratory Tests 08/29/18 10:47 Urine Test Negative Impressions Abdomen/Pelvis CT 08/29/18 10:14 IMPRESSION: There is a 1.2 cm calculus at the left UPJ with associated moderate hydronephrosis There is a 1-2 mm noncalcified nodule at the right lung base of doubtful clinical significance in a patient of this age group in the absence of known additional elevated risk factors. D/ / 08/29/2018 12:26:19 Los Price MD / bcarter Interpreting Provider: Los Price MD Anesthesia Exam Vital Signs Temp Pulse Resp BP Pulse Ox 08/29/18 13:20 71 16 115/78 97 08/29/18 10:47 68 18 115/87 98 08/29/18 10:06 97.8 F 74 18 131/86 99 08/29/18 09:52 97.8 F 74 18 131/86 99 Intake and Output 08/28/18 08/29/18 08/29/18 23:59 07:59 15:59 Other: Stool Characteristics Normal for Patient Stool Color Brown Weight 64.864 kg Patient Weight 08/29/18 23:59 Weight 64.864 kg Height: 5'1" Weight: 143# BMI = 27 NPO (# of Hours): MNoc - HEENT Pupil (Motor): Pupils equal, EOMI Mallampati: II Teeth: Normal Oral Opening: Greater than 3 - MEAT SCRUBBER LOC: Oriented MEAT SCRUBBER Motor: Normal RUE, Normal LUE, Normal RLE, Normal LLE, Normal Face MEAT SCRUBBER Sensory: Normal: RUE, LUE, RLE, LLE, Face - Cardiac Rhythm: Regular Murmur: None - Pulmonary Breath Sounds: bilateral Clear Respiratory Effort: Symmetrical Anesthesia Assess/Plan ASA Score: 2, E Modified Tom Scale for Level of Consciousness: Cooperative, oriented, and tranquil Anesthetic Plan: General Monitoring Plan: Standard Monitors Recovery Plan: PACU Anes Supervising Prov Stmt: Pt seen/evaluated, R&B Discussed, questions answered and consent obtained. Candelario Sykes MD
[2018-08-29] MEDS ORDERED: Lidocaine -MPF 2% 2 ML VIAL ONE (13:47)
[2018-08-29] MEDS ORDERED: *HR* FentaNYL (PF) 100 MCG/2 ML VIAL ONE (13:48)
[2018-08-29] MEDS ORDERED: *HR* Propofol 200 MG/20 ML VIAL IVP ONE (13:48)
[2018-08-29] MEDS ORDERED: *HR* Midazolam HCl 2 MG/2 ML VIAL ONE (13:48)
[2018-08-29] MEDS ORDERED: Gentamicin 80 MG/2 ML VIAL ONE (13:55)
[2018-08-29] MEDS ORDERED: Acetaminophen IV 1,000 MG/100 ML INFUS..BTL ONE (14:08)
[2018-08-29] MEDS ORDERED: Famotidine 20 MG/2 ML VIAL ONE (14:08)
--- NOTE | 2018-08-29 14:39 | Operative Note ---
Date of procedure: 08/29/18 Pre-op diagnosis: left upj stone Post-op diagnosis: same Procedure: Cystoscopy and left 4.8 x 26 cm ureteral stent placement Anesthesia: ALLENA Surgeon: Luis Fernando Miller Was there an staff assistant present: No Estimated blood loss (cc): 0 Specimen: none Condition: stable Disposition: PACU Procedure in Detail: Patient was prepped and draped in normal sterile fashion. Timeout procedure performed. I then inserted the cystoscope into the patient's bladder. I was able to cannulate the left ureteral orifice with a sensor wire. This then into the left kidney and pushed the left UPJ stone back into the renal pelvis. I then placed a 4.8 x 26 and meter stent with good curl seen in the left kidney and in the bladder. The bladder was drained and procedure was ended. Patient was taken to PACU in stable condition.
[2018-08-29] MEDS ORDERED: Dexamethasone 4 MG/ML VIAL ONE (14:41)
[2018-08-29] MEDS ORDERED: Ondansetron 4 MG/2 ML VIAL ONE (14:41)
--- NOTE | 2018-08-29 14:43 | Discharge Summary ---
Orders not resulted at time of discharge: Pending orders 08/29/18 XR KUB [XR] Routine XR fluoroscopy <1 hr [XR] Routine 08/29/18 10:47 Test Result, Urine [URIN] Stat Urinalysis Reflex Cult & Micro [URIN] Stat Date of Encounter: 08/29/18 Time of Encounter: 14:40 - Discharge Diagnosis (1) Calculus of left kidney Priority: Primary Status: Acute (2) Nausea and vomiting Priority: Secondary Status: Acute Qualifiers: Vomiting Intractability: non-intractable Qualified Code(s): R11.2 - Nausea with vomiting, unspecified - Hospital Course Hospital course: Ms. Caban is a 32 year old female was brought into the hospital for pain control and nausea control. She was taken to the operating room and underwent a left ureteral stent placement. Patient did well workup well was discharged home. Time spent discussing smoking cessation with patient: 3 to 10 minutes - Time Spent with Patient Total time spent providing and/or coordinating discharge services: Less than 30 minutes Procedures and tests throughout hospitalization: Cystoscopy and left ureteral stent placement 08/29/2018 Labs on day of discharge: Labs from last 24 hours 08/29/18 08/29/18 08/29/18 10:47 10:47 10:14 WBC RBC Hgb Hct MCV MCH MCHC RDW Plt Count MPV Immature Gran % Seg Neutrophils % Lymphocytes % Monocytes % Eosinophils % Basophils % Neutrophils # Lymphocytes # Monocytes # Eosinophils # Basophils # Sodium 137 Potassium 3.4 L Chloride 102 Carbon Dioxide 27 BUN 20 Creatinine 1.33 H Est GFR ( Amer) 57 L Est GFR (Non-Af Amer) 47 L BUN/Creatinine Ratio 15 Glucose 101 Calculated Osmolality 287 Calcium 8.5 L Urine Color Yellow Urine Clarity Cloudy A Urine pH 6.5 Ur Specific [place] 1.024 Urine Protein Trace Urine Glucose (UA) Normal Urine Ketones Negative Urine Blood Large H Urine Nitrite Negative Urine Bilirubin Negative Urine Urobilinogen Normal Ur Leukocyte Esterase Moderate H Urine Microscopic RBC 50-100 H Urine Microscopic WBC 30-50 H Ur Squamous Epith Cells Many H Urine Bacteria Moderate H Hyaline Casts None Seen Ur Culture Indicated? NO. A Urine Test Negative 08/29/18 10:14 WBC 11.1 RBC 4.22 Hgb 12.5 Hct 36.4 MCV 86.3 MCH 29.6 MCHC 34.3 RDW 12.9 Plt Count 251 MPV 10.6 Immature Gran % 0.5 Seg Neutrophils % 71.2 Lymphocytes % 17.0 Monocytes % 10.9 Eosinophils % 0.2 Basophils % 0.2 Neutrophils # 7.9 Lymphocytes # 1.9 Monocytes # 1.2 Eosinophils # 0.0 Basophils # 0.0 Sodium Potassium Chloride Carbon Dioxide BUN Creatinine Est GFR ( Amer) Est GFR (Non-Af Amer) BUN/Creatinine Ratio Glucose Calculated Osmolality Calcium Urine Color Urine Clarity Urine pH Ur Specific [place] Urine Protein Urine Glucose (UA) Urine Ketones Urine Blood Urine Nitrite Urine Bilirubin Urine Urobilinogen Ur Leukocyte Esterase Urine Microscopic RBC Urine Microscopic WBC Ur Squamous Epith Cells Urine Bacteria Hyaline Casts Ur Culture Indicated? Urine Test - Impressions ITS Impressions Abdomen/Pelvis CT 08/29/18 10:14 IMPRESSION: There is a 1.2 cm calculus at the left UPJ with associated moderate hydronephrosis There is a 1-2 mm noncalcified nodule at the right lung base of doubtful clinical significance in a patient of this age group in the absence of known additional elevated risk factors. D/ / 08/29/2018 12:26:19 Los Price MD / bcarter Interpreting Provider: Los Price MD - Discharge Medications Prescriptions: HYDROcodone/Acet 5/325 mg [[place] 5-325 mg] 1 tab PO Q6H PRN 3 Days #10 tab PRN Reason: Pain Oxybutynin [Ditropan] 5 mg PO TID PRN #30 tablet PRN Reason: bladder spasms Promethazine HCl 12.5 mg PO Q6H PRN 3 Days #10 tablet PRN Reason: n/v Home Medications: Triamcinolone Acet 0.1% OINT [Kenalog] 1 appl TP BID #1 tube 08/25/18 [Rx] predniSONE [PredniSONE] See Taper PO DAILY #18 tablet 08/25/18 [Rx] Ondansetron HCl [Zofran] 4 mg PO TID #15 tablet 08/27/18 [Rx] HYDROcodone/Acet 5/325 mg [[place] 5-325 mg] 1 tab PO Q6H PRN 3 Days #10 tab 08/29/18 [Rx] Ibuprofen [Motrin] 800 mg PO Q8HR PRN 08/29/18 [History] Norgestrel-Ethinyl Estradiol [Cryselle-28 Tablet] 1 tab PO DAILY 08/29/18 [History] Oxybutynin [Ditropan] 5 mg PO TID PRN #30 tablet 08/29/18 [Rx] Promethazine HCl 12.5 mg PO Q6H PRN 3 Days #10 tablet 08/29/18 [Rx] Sertraline [Zoloft] 25 mg PO DAILY 08/29/18 [History] Allergies/Adverse Reactions: Allergy/AdvReac Type Severity Reaction Status Date / Time Amoxicillin Allergy Hives Verified 08/29/18 13:24 Penicillins Allergy Hives Verified 08/29/18 13:24 clindamycin AdvReac Heartburn Verified 08/29/18 13:24 doxycycline AdvReac Abdominal Verified 08/29/18 13:24 Pain Sulfa (Sulfonamide AdvReac Rash Verified 08/29/18 13:24 Antibiotics) Date of admission: 08/29/18 13:01 Primary care physician: Khushi Velasco Discharging clinician: Luis Fernando Miller Anticipated date of discharge: 08/29/18 Exam Initial Vital Signs Temp Pulse Resp BP Pulse Ox 97.8 F 74 18 131/86 99 08/29/18 09:52 08/29/18 09:52 08/29/18 09:52 08/29/18 09:52 08/29/18 09:52 - General physical appearance Present: well developed, well nourished - Eyes Present: PERRL - Patient Status Disposition: Home, Self-Care Condition: Good Overall status at discharge: patient is progressing back to baseline - Discharge Instructions Follow Up With: Khushi Velasco MD [Primary Care Provider] - Luis Fernando Miller MD [Partnered Physician] - (Patiently scheduled for return trip to the operating room no office follow-up needed) Additional Instructions: Patient can expect some blood in her urine for the next 2-3 weeks. Okay to shower tonight. Call with any fever greater than 101.5. - Diet and Activity Activity: increase activity as tolerated Diet: advance to your usual diet
[2018-08-29] MEDS ORDERED: 0.9 % Sodium Chloride 1,000 ML IVC SCH (16:56)
[2018-08-29] MEDS ORDERED: *HR* HYDROcodone/Acet 5/325 mg TABLET PO PRN (16:56)
[2018-08-29] MEDS ORDERED: Naloxone 0.4 MG/ML INJ IVP PRN (16:56)
[2018-08-29] MEDS ORDERED: *HR* Promethazine 25 MG/ML VIAL IVP PRN (16:56)
--- NOTE | 2018-08-29 17:16 | Anesthesia Evaluation Post Op ---
Date of Encounter: 08/29/18 Time of Encounter: 15:25 - Vital Signs Vital Signs: Vital Signs Temp Pulse Resp BP Pulse Ox 08/29/18 15:15 98.3 F 63 16 100/60 100 08/29/18 15:05 98.9 F 58 18 104/72 100 08/29/18 14:45 98.1 F 64 16 100/62 98 08/29/18 13:20 71 16 115/78 97 08/29/18 10:47 68 18 115/87 98 08/29/18 10:06 97.8 F 74 18 131/86 99 08/29/18 09:52 97.8 F 74 18 131/86 99 Intake and Output 08/29/18 08/29/18 08/29/18 07:59 15:59 23:59 Output Total 0 / 0 Balance 0 / 0 Output: Estimated Blood Loss 0 / 0 Other: Stool Characteristics Normal for Patient Stool Color Brown # Voids 1 Weight 64.864 kg 64.4 kg Patient Weight 08/29/18 23:59 Weight 64.4 kg - Lungs Lungs: Clear Ascult./Percussion - Airway Airway: Non-obstructed - Cardiovascular Regular Rate - Mental Status Mental Status: Alert & Oriented, Answers Appropriately - Pain Pain Scale: 0 Pain Scale used: Numeric (1 - 10) - Nausea Vomiting Nausea Vomiting: Not Present - Hydration Hydration: Ice chips, Has not voided - Discharge PostOp Status: Transfer Patient to floor Anes Supervising Prov Stmt: Pt seen/evaluated, R&B discussed, questions answered and consent obtained. - MD Onel
[2018-08-29 17:18] VITALS: BP 112/77
== END 2018-08-29 18:12 | disposition home or self-care (01) ==
LOC: 3ANU 09:50 → EMEROOARM 09:50 → 3ANU 13:43 → 3BNU 15:57
PROVIDERS: ADMIT Urology; ATTEND Urology